=== PATIENT | female | born 1985 ===

== ENCOUNTER 2023-05-06 19:48 | Emergency (ER) | payer BC ==
[2023-05-06] MEDS ORDERED: diphenhydrAMINE 50 MG/ML SDV IVPUSH ONE (20:16)
[2023-05-06] MEDS ORDERED: Prochlorperazine 10 MG/2 ML SDV IVPUSH ONE (20:16)
[2023-05-06] MEDS ORDERED: Sodium Chloride 0.9% 10 ML Syringe FLUSH PRN (20:16)
[2023-05-06] MEDS ORDERED: Sodium Chloride 0.9% 1,000 ML IV ONE (20:16)
[2023-05-06] MEDS ORDERED: Ketorolac 30 MG/ML SDV IVPUSH ONE (20:16)
[2023-05-06] MEDS ORDERED: Ibuprofen 800 MG Tab PO ONE (21:53)
[2023-05-06] MEDS ORDERED: Acetaminophen 325 MG Tab PO ONE (21:53)
== END 2023-05-06 21:56 | disposition home or self-care (01) ==
LOC: JD.ED 19:48
DX: R51.9 Headache, unspecified (principal)
CPT/HCPCS: 96361; 96374; 96375; 99283; J0780; J1200; J1885; J7030